=== PATIENT | female | born 1975 | race Asian ===

== ENCOUNTER 2024-08-29 21:13 | Emergency (ER) | payer SELFPAY ==
[~2024-08-29] VITALS: Ht 154.9 cm; Wt 77.2 kg
[2024-08-29 21:28] VITALS: BP 161/85; PULSE 66; RESP 18; TEMP 98.1; O2SAT 100
== END 2024-08-29 21:58 | disposition left against medical advice (07) ==
LOC: EMS 21:15
DX: K08.89 Other specified disorders of teeth and supporting structures (principal); Z53.21 Procedure and treatment not carried out due to patient leaving prior to being seen by health care provider